=== PATIENT | female | born 1990 | race Caucasian/White ===

== ENCOUNTER 2021-02-25 16:22 | Emergency (ER) | payer BC, SELFPAY ==
[2021-02-25] VITALS (12 sets, daily range): BP systolic 137–179; BP diastolic 86–116; PULSE 90–126; RESP 17–22; TEMP 36.8–36.9; O2SAT 98–100
--- NOTE | 2021-02-25 16:32 | ECG_ITS ---
Measurements Intervals [place] Rate: 101 P: 47 AK: 171 QRS: 49 QRSD: 90 T: 10 QT: 324 QTc: 420 Interpretive Statements SINUS TACHYCARDIA LEFT ATRIAL ENLARGEMENT BORDERLINE ECG Electronically Signed On 02-25-2021 16:41:34 CDT by John Padilla D.O.
[2021-02-25 19:48] LABS: Basophils Percent Auto 0.2 % (0.2-1.2); Eosinophils Absolute Auto 0.1 K/mm3 (0-0.3); Eosinophils Percent Auto 0.8 % (0-4.4); Hematocrit 36.7 % (37.0-47.0); Hemoglobin 12.4 g/dL (12.0-15.0); Immature Granulocyte Absolute 0.02 K/mm3 (0.00-0.031); Immature Granulocyte Percent A 0.2 % (0-0.5); Lymphocytes Absolute Auto 2.19 K/mm3 (0.9-3.2); Lymphocytes Percent Auto 21.9 % (18.3-44.2); Mean Corpuscular HGB Conc 33.8 g/dl (32-36); Mean Corpuscular Hemoglobin 29.2 pg (26-34); Mean Corpuscular Volume 86.6 fl (80-100); Mean Platelet Volume 10.4 fl (7.4-10.4); Monocytes Absolute Auto 0.5 K/mm3 (0.1-0.6); Monocytes Percent Auto 5.1 % (2.6-8.5); Neutrophils Absolute Auto 7.2 K/mm3 (1.3-6.7); Neutrophils Percent Auto 71.8 % (45.5-73.1); Platelet Count Result 227 k/mm3 (150-375); Red Blood Count 4.24 M/mm3 (4.2-5.4)
[2021-02-25 19:56] LABS: Anion Gap 7 mmol/L (8-16); Blood Urea Nitrogen 9 mg/dL (7-17); Calcium 9.2 mg/dL (8.4-10.2); Carbon Dioxide 27 mmol/L (22-30); Chloride 105 mmol/L (98-107); Estimated Glomerular Filt Rate > 60; Glucose 93 mg/dL (65-110); Potassium 4.1 mmol/L (3.4-5.0); Sodium 139 mmol/L (137-145)
--- NOTE | 2021-02-25 20:06 | ED.RECABL ---
HPI - Recheck/Abnormal Lab/Rx General Chief Complaint: Recheck/Abnormal Lab/Rx Stated Complaint: high blood pressure Time Seen by Provider: 02/25/21 17:30 History of Present Illness HPI narrative: 30-year-old female currently going under IVF treatment sent from specialist office after lipid infusion was noted to have elevated blood pressure 180/120 systolic. 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 Patient states no headache, no chest pain, no altered mental status no shortness of breath no decreased urination no other symptoms. Of note patient also arrived tachycardic. Patient has not had the lipid infusion before but she denies any allergic symptoms including rash, difficulty swallowing, or shortness of breath. Related Data Home Medications Medication Instructions Recorded Confirmed folic acid 1 mg PO DAILY 02/25/21 Allergies Allergy/AdvReac Type Severity Reaction Status Date / Time No Known Allergies Allergy Verified 02/25/21 17:35 Review of Systems Review of Systems: CONSTITUTIONAL: no fever, no weight loss, no confusion EYES: no vision changes, no eye pain ENT: no rhinorrhea, no sore throat, no difficulty swallowing CARDIOVASCULAR: no chest pain, no leg edema, no palpitations RESPIRATORY: no cough, no shortness of breath, no hemoptysis GASTROINTESTINAL: no abdominal pain, no nausea, no vomiting, no diarrhea GENITOURINARY: no flank pain, no dysuria, no hematuria SKIN: no rash, no jaundice MUSCULOSKELETAL: no back pain, no trauma. NEUROLOGIC: No headache, no dizziness, no focal weakness PSYCHIATRIC: No hallucinations, no suicidal ideation Exam Narrative: General: alert, afebrile, answering all questions appropriately Head: normocephalic, atraumatic Eyes: EOMI bilaterally, anicteric, no injection ENT: moist mucous membranes, oropharynx patent, no rhinorrhea Neck: supple, trachea midline, no JVD Chest: equal chest rise bilaterally, no chest wall trauma noted Lungs: clear to auscultation bilaterally, respirations unlabored CV: tachycardia, regular, no CATRACHITO B, calf size equal bilaterally EXT: no deformity noted, moving all extremities equally Skin: warm, dry, no pallor Neuro: alert, oriented x 3; CN 2-12 grossly intact, no dysarthria Psych: affect appropriate, though content normal Course Vital Signs Vital signs: Vital Signs Temperature 36.9 C 10/04/21 16:25 Pulse Rate 126 H 02/25/21 16:25 Respiratory Rate 17 02/25/21 16:25 Blood Pressure 179/116 H 02/25/21 16:25 Pulse Oximetry 100 02/25/21 16:25 Temperature 36.9 C 02/25/21 16:25 Pulse Rate 100 02/25/21 19:02 Respiratory Rate 22 H 02/25/21 19:02 Blood Pressure 137/100 H 02/25/21 19:02 Pulse Oximetry 100 02/25/21 19:02 MDM - Recheck/Abnormal Lab/Rx MDM Narrative Medical decision making narrative: 30-year-old female with no significant past medical history with elevated blood pressure at endocrinology's office arrives here also with elevated blood pressure now improving at 146/99. Patient denies chest pain, headache, decreased urine output shortness of breath or altered mental status. No previous history of elevated blood pressure. She does have a family history of hypertension. Of note patient did get a lipid infusion for IVF treatment but has no allergic symptoms including no rash, no difficulty swallowing no shortness of breath no wheezing. Plan is to get EKG, check renal function and continue to observe. Medical Records Attestation: I reviewed the patient's medical records. Lab Data Attestation: I reviewed the patient's lab results. Result diagrams: 02/25/21 19:42 02/25/21 19:42 Labs: Lab Results 02/25/21 02/25/21 Range/Units 19:42 19:42 WBC 10.0 (4.5-10.0) K/mm3 RBC 4.24 (4.2-5.4) M/mm3 Hgb 12.4 (12.0-15.0) g/dL Hct 36.7 L (37.0-47.0) % MCV 86.6 (80-10
== END 2021-02-25 20:50 | disposition home or self-care (01) ==
PROVIDERS: Emergency Provider Emergency Medicine
DX: R03.0 Elevated blood-pressure reading, without diagnosis of hypertension (principal); R00.0 Tachycardia, unspecified; R94.31 Abnormal electrocardiogram [ECG] [EKG]
CPT/HCPCS: 36415; 80048; 85025; 93005; 99283